=== PATIENT | male | born 1995 ===

== ENCOUNTER 2016-08-08 18:00 | Emergency (ER) | payer SELFPAY ==
[2016-08-08] MEDS ORDERED: OSELTAMIVIR PHOSPHATE 75 MG CAPSULE PO ONE ×2 (19:07→19:17)
--- NOTE | 2016-08-08 19:08 | ERNOTE ---
Medical Problem HPI - Narrative Date of Service: 08/08/16 - General Chief Complaint: Flu Symptoms Time Seen by Provider: 08/08/16 18:56 Source: patient Exam Limitations: no limitations - Immun/Allergies/Home Medications Immunizations: IMMUNIZATION HX History of Influenza Vaccine No Allergies/Adverse Reactions: Allergies No Known Allergies Allergy (Unverified 08/08/16 18:20) Home Medications: HOME MEDICATIONS Oseltamivir Phosphate [Tamiflu] 75 mg PO BID #10 cap 08/08/16 [Last Taken Unknown] - History of Present History Narrative: Pt. comes in with c/o sinus congestion, rhinorrhea, sore throat, fever, body aches, chills, and cough. Pt. denies any SOB or CP. Pt. denies any alleviating factors, aggravating factors, or prehospital treatment. Review of Systems - Review of Systems Constitutional: Present: fever, chills, fatigue, malaise EYE: Present: no symptoms reported ENT: Present: nose congestion, nasal drainage, sore throat. Absent: ear pain Respiratory: Present: cough. Absent: shortness of breath, wheezing Cardiology: Present: no symptoms reported. Absent: chest pain, palpitations, edema Gastrointestinal/Abdominal: Present: no symptoms reported. Absent: nausea, vomiting, diarrhea Genitourinary: Present: no symptoms reported Musculoskeletal: Present: muscle pain - generalized. Absent: back pain, joint pain Skin: Present: no symptoms reported. Absent: rash, change in color, change in hair/nails Neurological: Present: headache. Absent: dizziness/light-headedness, numbness All Other Systems: All systems neg except as marked - Patient's Past Medical History Patient History - Medical: No pertinent hx Patient History - Cardiac/Respiratory: No pertinent hx Patient History - Cancer: No Hx of Cancer Patient History - Surgical Procedures: Other Patient History - Other: None - Social History Living Situations: home Psych History: No pertinent hx Smoking Status: Current every day smoker Alcohol Use: none Drug Use: none - Immunizations History of Influenza Vaccine: No Physical Exam - Physical Exam General Appearance: Present: wd/wn, alert, no apparent distress Eye Exam: Normal inspection: bilateral, PERRL: bilateral, EOMI: bilateral Ears, Nose, Throat: Present: hearing grossly normal, nasal congestion, normal pharynx, tonsillar exudate - clear. Absent: abnormal TM (R), abnormal TM (L) Neck: Present: normal inspection, nontender. Absent: lymphadenopathy (R), lymphadenopathy (L) Respiratory: Present: no respiratory distress, normal breath sounds, no accessory muscle use, chest nontender, lungs clear Cardiovascular/Chest: Present: regular rate, rhythm, no murmur, normal peripheral pulses Gastrointestinal/Abdominal: Present: normal bowel sounds, nontender, nondistended, soft, no organomegaly Back Exam: Present: normal inspection Extremity Exam: Present: normal inspection Neurological Exam: Present: alert, oriented, normal mood/affect, no motor/ sensory deficits Skin Exam: Present: warm/dry, pallor ED Progress - Results and Orders Patient's Lab Results:: I have reviewed the patient's lab results. - Vital Signs Patient's Vital Signs:: I have reviewed the patient's vital signs. Vital Signs: Vital Signs 08/08/16 18:15 Temperature 37.0 C Pulse Rate 84 Respiratory 12 Rate Blood Pressure 129/79 O2 Sat by Pulse 97 Oximetry - Progress/Reassessment Chief Complaint: Flu Symptoms Departure - Departure Clinical Impression: Influenza A Disposition: Home self-care Condition: Good Instructions: Influenza, Adult, [id number], Form - Excuse from Work, School, or Physical Activity Additional Instructions: Please follow up with primary provider if not improving in 2-3 days. Prescriptions: Oseltamivir Phosphate [Tamiflu] 75 mg PO BID #10 cap
--- OUTSIDE RECORDS SUMMARY | 2016-08-08 19:18 | XMS REPORT | Continuity of Care Document ---
:1995 Author Organization [facility] [place] [address] Care Team Providers Name Role Phone Unavailable Primary Care Provider Unavailable Source Comments This disclosure is being made pursuant to the [employer] program and maynot contain all information available regarding this patient.[facility] Active Allergies and Adverse Reactions Not on File Current Medications Be aware that medications may not be up to date as of this document. Alwaysverify current medications with the patient. Not on file Active Problems Not on file Social History Tobacco Use Types Packs/Day Years Used Date Never Smoker Last Filed Vital Signs Vital Sign Reading Time Taken Blood Pressure 110/70 07/10/2012 2:08 PM [employer] Pulse 86 07/10/2012 2:08 PM [employer] Temperature 36.4 C (97.5 F) 07/10/2012 2:08 PM [employer] Respiratory Rate 16 07/10/2012 2:08 PM [employer] Height 1.791 m (5' 10.5") 07/10/2012 2:08 PM [employer] Weight 61.689 kg (136 lb) 07/10/2012 2:08 PM [employer] Body Mass Index 19.23 07/10/2012 2:08 PM [employer] Oxygen Saturation - - Plan of Care Health Maintenance Due Date Last Done Comments HPV Vaccine ([id number]) (1 of 3 - Male 3 Dose Series) 10/04/2006 Retired-Tetanus Vaccine Adult 10/04/2014 Retired-INFLUENZA VACCINE 02/24/2015 Results from Last 3 Months Not on file
[2016-08-08 19:49] VITALS: BP 93/54
== END 2016-08-08 19:21 | disposition home or self-care (01) ==
LOC: ER 18:00
DX: J09.X2 Influenza due to identified novel influenza A virus with other respiratory manifestations (principal); F17.210 Nicotine dependence, cigarettes, uncomplicated